=== PATIENT | male | born 1955 | race Two or more races ===

== ENCOUNTER 2019-05-17 10:10 | Emergency (ER) | payer OTHER ==
[~2019-05-17] VITALS: Ht 175.3 cm; Wt 86.4 kg
[2019-05-17 10:18] VITALS: BP 130/70
--- NOTE | 2019-05-17 11:10 | NUR ---
pt given dc instructions and script, educated regarding dc rx for acyclovir and ointment. pt denies visual difficulty. pt amb to dc desk with steady gait, all questions answered.
== END 2019-05-17 11:11 | disposition home or self-care (01) ==
LOC: ED 10:43
DX: B02.9 Zoster without complications (principal)
CPT/HCPCS: 99283

== ENCOUNTER 2019-08-17 13:32 | Outpatient (CLI) | payer OTHER ==
[2019-08-17] MEDS ORDERED: METF500T17 PO (14:15)
[2019-08-17] MEDS ORDERED: IBUP200C8 PO (14:15)
[2019-08-17] MEDS ORDERED: ASPI-650 PO (14:15)
[2019-08-17] MEDS ORDERED: ATEN50TA41 PO (14:15)
[2019-08-17] MEDS ORDERED: FURO20TA3 PO (14:15)
[2019-08-17 14:50] LABS: BASOPHILS # (AUTO) 0.04 x10^3/uL (0-0.1); BASOPHILS % (AUTO) 1 % (0-1); EOSINOPHILS # (AUTO) 0.22 x10^3/uL (0-0.4); EOSINOPHILS % (AUTO) 3 % (1-7); LYMPHOCYTES # (AUTO) 1.57 x10^3/uL (1-3.4); LYMPHOCYTES % (AUTO) 22 % (22-44); MD NO; MEAN CORPUSCULAR HEMOGLOBIN 34.2 pg (27.5-34.5); MEAN CORPUSCULAR HGB CONC 33.2 g/dL (33.2-36.2); MEAN CORPUSCULAR VOLUME 103.1 fL (81-97); MEAN PLATELET VOLUME 8.9 fL (7.4-10.4); MONOCYTES # (AUTO) 0.54 x10^3/uL (0.2-0.8); MONOCYTES % (AUTO) 8 % (2-9); NEUTROPHILS # (AUTO) 4.83 x10^3/uL (1.8-6.8); NEUTROPHILS % (AUTO) 67 % (42-75); PLATELET COUNT 220 x10^3/uL (130-400); RED CELL DISTRIBUTION WIDTH 13.8 % (9.4-14.8)
[2019-08-17 14:56] LABS: ALBUMIN 3.7 g/dL (3.4-5.0); ANION GAP 6 mmol/L (5-15); CALCIUM 9.1 mg/dL (8.5-10.1); CHLORIDE 109 mmol/L (98-107)
[2019-08-17 15:01] LABS: ALANINE AMINOTRANSFERASE 26 U/L (12-78); ALKALINE PHOSPHATASE 77 U/L (45-117); BILIRUBIN,TOTAL 0.6 mg/dL (0.2-1.0); CREATININE 1.06 mg/dL (0.7-1.3); TOTAL PROTEIN 7.7 g/dL (6.4-8.2)
[2019-08-17 16:57] LABS: INTERNATIONAL NORMALIZED RATIO 0.99 (0.93-1.1); PROTHROMBIN TIME 10.5 Seconds (9.6-11.5)
== END 2019-08-17 23:59 | disposition home or self-care (01) ==
LOC: STAR 13:32
PROVIDERS: ATTEND Orthopaedic Surgery
DX: Z01.818 Encounter for other preprocedural examination (principal); M17.11 Unilateral primary osteoarthritis, right knee
CPT/HCPCS: 36415; 80053; 83036; 85025; 85610; 85730; 87081; 87147; 93005

== ENCOUNTER 2019-08-25 10:59 | Observation (INO) | payer OTHER ==
[~2019-08-25] VITALS: Ht 175.3 cm; Wt 83.1 kg
[~2019-08-25 10:59] MED LIST: ACETAMINOPHEN 325 MG TABLET PO PRN; ASPI-650 PO; ATEN50TA41 PO; BISACODYL 10 MG SUPP PR PRN; DIPHENHYDRAMINE 50 MG CAPSULE PO PRN; EPINEPHRINE 1 MG/ML, 1ML ONE; FURO20TA3 PO; HYDROcodone/APAP 5/325 TABLET PO PRN; HYDROmorphone 1 MG/ML, 1ML INJ IV PRN; IBUP200C8 PO; KETOROLAC 60 MG/2 ML ONE; MAGNESIUM HYDROXIDE 8%, 30ML UDC PO PRN; METF500T17 PO; ONDANSETRON 2MG/ML, 2ML IV PRN; ONDANSETRON 4 MG TABLET PO PRN; OXYcodone IR 5MG TABLET PO PRN; ROPIvacaine/PF 0.5%, 30 ML ONE; SENNA/DOCUSATE TABLET PO PRN; SODIUM CHLORIDE 0.9% 50 ML ONE; TRANEXAMIC ACID 100 MG/ML, 10ML ONE; VANCOMYCIN 1,000 MG ONE; ZOLPIDEM 5MG TABLET PO PRN
[2019-08-25] MEDS: INSULIN LISPRO 100 UNITS/ML, PEN SQ-INSULIN SCH ×4 (11:00→20:32)
[2019-08-25] MEDS ORDERED: LACTATED RINGERS 1,000 ML IV SCH (11:29)
[2019-08-25] MEDS ORDERED: GABAPENTIN 300 MG CAPSULE PO ONE (11:30)
[2019-08-25] MEDS ORDERED: CHLORHEXIDINE 15 ML UDC MM ONE (11:30)
[2019-08-25] MEDS ORDERED: ACETAMINOPHEN 500 MG TABLET PO ONE (11:30)
[2019-08-25] MEDS ORDERED: GABAPENTIN 300 MG CAPSULE ONE (11:37)
[2019-08-25] MEDS ORDERED: ACETAMINOPHEN 500 MG TABLET ONE (11:37)
[2019-08-25] MEDS ORDERED: CHLORHEXIDINE 15 ML UDC ONE (11:38)
[2019-08-25] MEDS ORDERED: MIDAZOLAM 1 MG/ML, 2ML ONE (11:43)
[2019-08-25] MEDS ORDERED: FENTANYL PF 250 MCG/5ML ONE (11:43)
[2019-08-25] MEDS ORDERED: HYDROmorphone 1 MG/ML, 1ML INJ IVPush PRN (12:00)
[2019-08-25] MEDS ORDERED: ONDANSETRON 2MG/ML, 2ML IVPush PRN (12:00)
[2019-08-25] MEDS ORDERED: FENTANYL PF 100 MCG/2ML IV PRN (12:00)
[2019-08-25] MEDS ORDERED: LABETALOL 5MG/ML, 20ML IV PRN (12:00)
[2019-08-25] MEDS ORDERED: OXYcodone 5 MG/5 ML ORAL.SOL UDC PO PRN (12:00)
[2019-08-25] MEDS ORDERED: hydrALAzine 20 MG/ML, 1ML IV PRN (12:00)
[2019-08-25] MEDS ORDERED: MEPERIDINE/PF 25MG/0.5ML IVPush PRN (12:00)
[2019-08-25] MEDS ORDERED: DIAZEPAM 5 MG/ML, 2ML IVPush PRN (12:00)
[2019-08-25] MEDS ORDERED: ONDANSETRON 2MG/ML, 2ML ONE (12:45)
[2019-08-25] MEDS ORDERED: SUCCINYLCHOLINE 20 MG/ML, 10ML ONE (12:45)
[2019-08-25] MEDS ORDERED: PROPOFOL 10 MG/ML, 20ML ONE (12:45)
[2019-08-25 15:15] VITALS: BP 118/72
[2019-08-25] MEDS: FUROSEMIDE 20 MG TABLET PO SCH (17:00)
[2019-08-25] MEDS: ATENOLOL 25 MG TABLET PO SCH (17:01)
[2019-08-25] MEDS: NS + 20MEQ KCL 1,000 ML IV SCH (17:36)
[2019-08-25] MEDS: ASPIRIN 81 MG TABLET EC PO SCH (18:04)
[2019-08-25 19:19] VITALS: BP 113/70
[2019-08-25] MEDS: metFORMIN 500 MG TABLET PO SCH (20:32)
[2019-08-25] MEDS: DOCUSATE 100 MG CAPSULE PO SCH (20:32)
[2019-08-25] MEDS: CEFAZOLIN PMX 2GM/50ML 50 ML IVPB SCH (22:07)
[2019-08-25 23:29] VITALS: BP 127/65
[2019-08-26 04:01] VITALS: BP 121/71
[2019-08-26] MEDS: CEFAZOLIN PMX 2GM/50ML 50 ML IVPB SCH (05:58)
[2019-08-26] MEDS: ASPIRIN 81 MG TABLET EC PO SCH (05:58)
[2019-08-26] MEDS: NS + 20MEQ KCL 1,000 ML IV SCH (06:00)
[2019-08-26] MEDS: INSULIN LISPRO 100 UNITS/ML, PEN SQ-INSULIN SCH ×2 (06:33→11:05)
[2019-08-26 07:09] VITALS: BP 130/77
[2019-08-26] MEDS: ATENOLOL 25 MG TABLET PO SCH (08:37)
[2019-08-26] MEDS: metFORMIN 500 MG TABLET PO SCH (08:38)
[2019-08-26] MEDS: DOCUSATE 100 MG CAPSULE PO SCH (08:38)
[2019-08-26] MEDS: FUROSEMIDE 20 MG TABLET PO SCH (08:38)
[2019-08-26] MEDS ORDERED: MELO7.5T31 PO (09:30)
[2019-08-26] MEDS ORDERED: OXYC5TAB3 PO (09:31)
[2019-08-26] MEDS ORDERED: ASPI81TA45 PO (09:32)
[2019-08-26] MEDS ORDERED: TRAM50TA2 PO (09:32)
[2019-08-26 10:55] VITALS: BP 117/75
== END 2019-08-26 11:20 | disposition home or self-care (01) ==
LOC: OUT 10:59 → INTOOBSV 15:13 → ORIP 15:13 → 3N 15:30
PROVIDERS: ADMIT Orthopaedic Surgery; ATTEND Orthopaedic Surgery
DX: Z03.818 Encounter for observation for suspected exposure to other biological agents ruled out (principal); M17.11 Unilateral primary osteoarthritis, right knee; I11.0 Hypertensive heart disease with heart failure; I50.9 Heart failure, unspecified; Z79.899 Other long term (current) drug therapy; Z87.891 Personal history of nicotine dependence
CPT/HCPCS: 27447; 36415; 82962; 85014; 85018; 96365; 96366; 97162; 97165; C1713; C1776; G0378; J0171; J0330; J0690; J1815; J1885; J2250; J2405; J2704; J2795; J3010; J3370; J3480; J7120; U0001

== ENCOUNTER → 2019-11-17 | Outpatient (CLI) | payer OTHER ==
[~2019-11-17] MED LIST changes: -ACETAMINOPHEN 325 MG TABLET PO PRN; +ASPI81TA45 PEG; +ASPI81TA45 PO; -BISACODYL 10 MG SUPP PR PRN; -DIPHENHYDRAMINE 50 MG CAPSULE PO PRN; -EPINEPHRINE 1 MG/ML, 1ML ONE; -HYDROcodone/APAP 5/325 TABLET PO PRN; -HYDROmorphone 1 MG/ML, 1ML INJ IV PRN; +INDO50CA15 PO; -KETOROLAC 60 MG/2 ML ONE; -MAGNESIUM HYDROXIDE 8%, 30ML UDC PO PRN; +MELO7.5T31 PO; -ONDANSETRON 2MG/ML, 2ML IV PRN; -ONDANSETRON 4 MG TABLET PO PRN; +OXYC5TAB3 PO; -OXYcodone IR 5MG TABLET PO PRN; -ROPIvacaine/PF 0.5%, 30 ML ONE; -SENNA/DOCUSATE TABLET PO PRN; -SODIUM CHLORIDE 0.9% 50 ML ONE; +TRAM50TA2 PO; -TRANEXAMIC ACID 100 MG/ML, 10ML ONE; -VANCOMYCIN 1,000 MG ONE; -ZOLPIDEM 5MG TABLET PO PRN
[2019-11-17 10:38] LABS: BASOPHILS # (AUTO) 0.03 x10^3/uL (0-0.1); BASOPHILS % (AUTO) 0 % (0-1); EOSINOPHILS # (AUTO) 0.11 x10^3/uL (0-0.4); EOSINOPHILS % (AUTO) 2 % (1-7); LYMPHOCYTES # (AUTO) 1.64 x10^3/uL (1-3.4); LYMPHOCYTES % (AUTO) 25 % (22-44); MD NO; MEAN CORPUSCULAR HEMOGLOBIN 32.8 pg (27.5-34.5); MEAN CORPUSCULAR HGB CONC 32.7 g/dL (33.2-36.2); MEAN CORPUSCULAR VOLUME 100.5 fL (81-97); MEAN PLATELET VOLUME 8.6 fL (7.4-10.4); MONOCYTES # (AUTO) 0.59 x10^3/uL (0.2-0.8); MONOCYTES % (AUTO) 9 % (2-9); NEUTROPHILS # (AUTO) 4.25 x10^3/uL (1.8-6.8); NEUTROPHILS % (AUTO) 64 % (42-75); PLATELET COUNT 237 x10^3/uL (130-400); RED BLOOD COUNT 4.55 x10^6/uL (4.38-5.82)
[2019-11-17 10:45] LABS: INTERNATIONAL NORMALIZED RATIO 0.98 (0.93-1.1); PROTHROMBIN TIME 10.1 Seconds (9.6-11.5)
[2019-11-17 10:47] LABS: ALANINE AMINOTRANSFERASE 29 U/L (12-78); ALBUMIN 3.5 g/dL (3.4-5.0); ANION GAP 4 mmol/L (5-15); CALCIUM 9.4 mg/dL (8.5-10.1); CHLORIDE 106 mmol/L (98-107); CREATININE 0.92 mg/dL (0.7-1.3)
[2019-11-17 10:49] LABS: ALKALINE PHOSPHATASE 97 U/L (45-117); BILIRUBIN,TOTAL 0.3 mg/dL (0.2-1.0); TOTAL PROTEIN 8.1 g/dL (6.4-8.2)
== END | disposition home or self-care (01) ==
LOC: STAR 09:20
PROVIDERS: ATTEND Orthopaedic Surgery
DX: Z01.818 Encounter for other preprocedural examination (principal); M17.12 Unilateral primary osteoarthritis, left knee; R94.31 Abnormal electrocardiogram [ECG] [EKG]
CPT/HCPCS: 36415; 80053; 83036; 85025; 85610; 85730; 87081; 93005

== ENCOUNTER → 2019-11-19 | Outpatient (CLI) | payer OTHER ==
[~2019-11-19] MED LIST changes: +OXYC5CAP2 PO
== END | disposition home or self-care (01) ==
LOC: STAR 09:18
PROVIDERS: ATTEND Anesthesiology
DX: Z01.812 Encounter for preprocedural laboratory examination (principal); Z20.828 Contact with and (suspected) exposure to other viral communicable diseases
CPT/HCPCS: 36415; 87635

== ENCOUNTER 2019-11-24 10:04 | Observation (INO) | payer OTHER ==
[~2019-11-24] VITALS: Ht 175.3 cm; Wt 88.8 kg
[~2019-11-24 10:04] MED LIST changes: +ACETAMINOPHEN 650 MG/20.3 ML UDC PO PRN; +BISACODYL 10 MG SUPP PR PRN; +DIPHENHYDRAMINE 25 MG CAPSULE PO PRN; +EPINEPHRINE 1 MG/ML, 1ML ONE; +HYDROcodone/APAP 5/325 TABLET PO PRN; +HYDROmorphone 1 MG/ML, 1ML INJ IV PRN; +KETOROLAC 60 MG/2 ML ONE; +MAGNESIUM HYDROXIDE 8%, 30ML UDC PO PRN; +ONDANSETRON 2MG/ML, 2ML IV PRN; +ONDANSETRON 4 MG TABLET PO PRN; -OXYC5CAP2 PO; +OXYcodone IR 5MG TABLET PO PRN; +ROPIvacaine/PF 0.5%, 20 ML ONE; +ROPIvacaine/PF 0.5%, 30 ML ONE; +SENNA/DOCUSATE TABLET PO PRN; +SODIUM CHLORIDE 0.9% 50 ML ONE; +TRANEXAMIC ACID 100 MG/ML, 10ML ONE; +VANCOMYCIN 1,000 MG ONE; +ZOLPIDEM 5MG TABLET PO PRN
[2019-11-24 11:21] VITALS: BP 160/87
[2019-11-24] MEDS ORDERED: LACTATED RINGERS 1,000 ML IV SCH (11:24)
[2019-11-24] MEDS ORDERED: CHLORHEXIDINE 15 ML UDC ONE (11:27)
[2019-11-24] MEDS ORDERED: CHLORHEXIDINE 15 ML UDC MM ONE (11:30)
[2019-11-24] MEDS ORDERED: MIDAZOLAM 1 MG/ML, 2ML ONE (12:33)
[2019-11-24] MEDS ORDERED: FENTANYL PF 100 MCG/2ML ONE ×2 (12:33→13:56)
[2019-11-24] MEDS ORDERED: PHENYLEPHRINE 10 MG/ML ONE (13:18)
[2019-11-24] MEDS ORDERED: CEFAZOLIN 1,000 MG ONE (13:56)
[2019-11-24] MEDS ORDERED: PROPOFOL 10 MG/ML, 20ML ONE (13:56)
[2019-11-24] MEDS ORDERED: DEXAMETHASONE 4 MG/ML, 1ML ONE (13:56)
[2019-11-24] MEDS ORDERED: ONDANSETRON 2MG/ML, 2ML ONE (13:56)
[2019-11-24] MEDS ORDERED: OXYcodone 5 MG/5 ML ORAL.SOL UDC PO PRN (14:00)
[2019-11-24] MEDS ORDERED: MEPERIDINE/PF 25MG/0.5ML IVPush PRN (14:00)
[2019-11-24] MEDS ORDERED: HYDROmorphone 1 MG/ML, 1ML INJ IVPush PRN (14:00)
[2019-11-24] MEDS ORDERED: PROMETHAZINE 25 MG/ML, 1ML IVPush PRN (14:00)
[2019-11-24] MEDS ORDERED: FENTANYL PF 100 MCG/2ML IV PRN (14:00)
[2019-11-24] MEDS ORDERED: MEPERIDINE/PF 25MG/ML,1ML ONE (15:06)
[2019-11-24] MEDS: NS + 20MEQ KCL 1,000 ML IV SCH (16:12)
[2019-11-24 16:13] VITALS: BP 142/79
[2019-11-24] MEDS: DOCUSATE 100 MG CAPSULE PO SCH ×2 (17:49→20:46)
[2019-11-24] MEDS: metFORMIN 500 MG TABLET PO SCH ×2 (17:49→20:47)
[2019-11-24] MEDS: ASPIRIN 81 MG TABLET EC PO SCH (18:22)
[2019-11-24 19:25] VITALS: BP 148/78
[2019-11-24] MEDS: CEFAZOLIN PMX 2GM/50ML 50 ML IVPB SCH (20:55)
[2019-11-25 00:15] VITALS: BP 137/80
[2019-11-25] MEDS: NS + 20MEQ KCL 1,000 ML IV SCH (00:54)
[2019-11-25 04:14] VITALS: BP 142/84
[2019-11-25] MEDS: CEFAZOLIN PMX 2GM/50ML 50 ML IVPB SCH ×2 (05:09→05:46)
[2019-11-25] MEDS: ASPIRIN 81 MG TABLET EC PO SCH (05:46)
[2019-11-25] MEDS ORDERED: DEXAMETHASONE 4 MG/ML, 1ML IVPush SCH (06:00)
[2019-11-25 07:14] VITALS: BP 145/87
[2019-11-25] MEDS: metFORMIN 500 MG TABLET PO SCH (08:15)
[2019-11-25] MEDS: DOCUSATE 100 MG CAPSULE PO SCH (08:15)
[2019-11-25] MEDS ORDERED: ATENOLOL 25 MG TABLET PO SCH (09:00)
[2019-11-25] MEDS ORDERED: FUROSEMIDE 20 MG TABLET PO SCH (09:00)
[2019-11-25] MEDS ORDERED: OXYC5CAP2 PO (09:25)
[2019-11-25] MEDS ORDERED: TRAM50TA2 PO (09:28)
[2019-11-25] MEDS ORDERED: MELO7.5T31 PO (09:32)
[2019-11-25 10:33] VITALS: BP 148/93
== END 2019-11-25 11:15 | disposition home or self-care (01) ==
LOC: OUT 10:04 → 4NE 16:00 → OUT 20:31 → DCLOUNGE 11-25 11:00
PROVIDERS: ADMIT Orthopaedic Surgery; ATTEND Orthopaedic Surgery
DX: M17.12 Unilateral primary osteoarthritis, left knee (principal); I10 Essential (primary) hypertension; E11.9 Type 2 diabetes mellitus without complications; Z96.652 Presence of left artificial knee joint; Z87.891 Personal history of nicotine dependence; Z79.899 Other long term (current) drug therapy
CPT/HCPCS: 27447; 36415; 82962; 85014; 85018; 96365; 96366; 96375; 97162; 97165; C1713; C1776; G0378; J0171; J0690; J1100; J1885; J2175; J2250; J2370; J2405; J2704; J2795; J3010; J3370; J7120

== ENCOUNTER → 2020-09-01 | Outpatient (CLI) | payer OTHER ==
[~2020-09-01] MED LIST changes: -ACETAMINOPHEN 650 MG/20.3 ML UDC PO PRN; +ASPI-1026 PO; -ASPI-650 PO; -BISACODYL 10 MG SUPP PR PRN; -DIPHENHYDRAMINE 25 MG CAPSULE PO PRN; -EPINEPHRINE 1 MG/ML, 1ML ONE; -HYDROcodone/APAP 5/325 TABLET PO PRN; -HYDROmorphone 1 MG/ML, 1ML INJ IV PRN; -KETOROLAC 60 MG/2 ML ONE; -MAGNESIUM HYDROXIDE 8%, 30ML UDC PO PRN; -ONDANSETRON 2MG/ML, 2ML IV PRN; -ONDANSETRON 4 MG TABLET PO PRN; +OXYC5CAP2 PO; -OXYC5TAB3 PO; +OXYC5TAB98 PO; -OXYcodone IR 5MG TABLET PO PRN; -ROPIvacaine/PF 0.5%, 20 ML ONE; -ROPIvacaine/PF 0.5%, 30 ML ONE; -SENNA/DOCUSATE TABLET PO PRN; -SODIUM CHLORIDE 0.9% 50 ML ONE; -TRANEXAMIC ACID 100 MG/ML, 10ML ONE; -VANCOMYCIN 1,000 MG ONE; -ZOLPIDEM 5MG TABLET PO PRN
[2020-09-01 08:37] LABS: BASOPHILS % (AUTO) 1 % (0-1); EOSINOPHILS % (AUTO) 2 % (1-7); LYMPHOCYTES % (AUTO) 31 % (22-44); MEAN CORPUSCULAR HEMOGLOBIN 34.1 pg (27.5-34.5); MEAN CORPUSCULAR HGB CONC 33.8 g/dL (33.2-36.2); MEAN PLATELET VOLUME 8.5 fL (7.4-10.4); MONOCYTES % (AUTO) 10 % (2-9); NEUTROPHILS % (AUTO) 55 % (42-75); PLATELET COUNT 209 x10^3/uL (130-400); RED BLOOD COUNT 4.52 x10^6/uL (4.38-5.82); RED CELL DISTRIBUTION WIDTH 13.6 % (9.4-14.8)
[2020-09-01 08:46] LABS: ALANINE AMINOTRANSFERASE 21 U/L (12-78); ALBUMIN 3.7 g/dL (3.4-5.0); ANION GAP 9 mmol/L (5-15); CALCIUM 9.2 mg/dL (8.5-10.1); CHLORIDE 107 mmol/L (98-107); CHOLESTEROL, TOTAL 196 mg/dL (140-239); CREATININE 0.98 mg/dL (0.7-1.3)
[2020-09-01 08:50] LABS: ALKALINE PHOSPHATASE 73 U/L (45-117); BILIRUBIN,TOTAL 0.9 mg/dL (0.2-1.0); HDL CHOL % 34 % (26-37); HDL CHOLESTEROL (DIRECT) 66 mg/dL (40-60); LDL CHOLESTEROL,CALCULATED 110 mg/dL (54-169); LDL/HDL RATIO 1.7 (0.5-3.0); TOTAL PROTEIN 7.4 g/dL (6.4-8.2); TRIGLYCERIDES 100 mg/dL (50-200); VLDL CHOLESTEROL 20 mg/dL (0-25)
== END | disposition home or self-care (01) ==
LOC: LAB 08:19
PROVIDERS: ATTEND Family Medicine
DX: Z12.5 Encounter for screening for malignant neoplasm of prostate (principal); Z13.0 Encounter for screening for diseases of the blood and blood-forming organs and certain disorders involving the immune mechanism; Z13.228 Encounter for screening for other metabolic disorders; R73.09 Other abnormal glucose
CPT/HCPCS: 36415; 80053; 80061; 83036; 84153; 85025; G0103